=== PATIENT | male | born 2000 | race Caucasian/White ===

== ENCOUNTER 2023-11-06 10:24 | Emergency (ER) | payer SELFPAY ==
[~2023-11-06] VITALS: Ht 185.4 cm; Wt 81.8 kg
[2023-11-06 10:33] VITALS: TEMP 97.9
[2023-11-06 11:11] VITALS: BP 135/82; PULSE 77
== END 2023-11-06 11:11 | disposition home or self-care (01) ==
LOC: COL.ER 10:24
DX: S61.211A Laceration without foreign body of left index finger without damage to nail, initial encounter (principal); Z23 Encounter for immunization; W26.8XXA Contact with other sharp object(s), not elsewhere classified, initial encounter; Y99.0 Civilian activity done for income or pay